=== PATIENT | female | born 2000 | race Caucasian/White ===

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

== ENCOUNTER 2018-01-16 19:08 | Emergency (ER) | payer OTHER ==
[~2018-01-16] VITALS: Ht 170.2 cm; Wt 72.6 kg
[2018-01-16 19:12] VITALS: TEMP 36.7; Ht 170.2 cm; Wt 72.6 kg
[2018-01-16] MEDS ORDERED: KETOROLAC TROMETHAMINE 30 MG/ML VIAL IV STA (19:25)
[2018-01-16] MEDS ORDERED: SODIUM CHLORIDE 0.9% 1000ML 1,000 ML IV STA ×2 (19:25)
[2018-01-16] MEDS ORDERED: ACETAMINOPHEN 500 MG TAB PO STA (19:25)
--- NOTE | 2018-01-16 19:25 | EMERGENCY ROOM VISIT NOTE ---
History Report prepared by Cami: Yung Kumar Under the Supervision of: Dr. Carlos Ambriz M.D. First contact with patient: 19:14 Chief Complaint: ABDOMINAL PAIN Stated Complaint: LOWER L AB PAIN INTENSE,NAUSEA,DIZZINESS,SHAKINESS History of Present Illness The patient is a 17 year old white female with a past medical history of stomach ulcers, ruptured ovarian cyst, and bulimia who presents to the ED with a cc of waxing and waning, left-sided abdominal pain beginning yesterday. Positive nausea, dizziness, shakiness, an episode of vomiting yesterday, brownish vaginal discharge, feeling warm, and being sexually active two weeks ago. Negative recent antibiotic use, recent travel, being around sick roommates , vaginal bleeding, relief with ibuprofen. She states nothing makes it better or worse. Pt had an IUD placed recently. Her LNMP was a few weeks ago. Pt takes Prozac daily for depression. Source of History: patient Onset: yesterday Position: abdomen (left sided) Timing: waxes/wanes Modifying Factors (Worsening): other (nothing) Modifying Factors (Relieving): other (nothing) Associated Symptoms: + nausea, + vomiting Note: Associated symptoms: dizziness, shakiness, brownish vaginal discharge, feeling warm Denies: vaginal bleeding Review of Systems See HPI for pertinent positives and negatives. A total of ten systems were reviewed and were otherwise negative. Past Medical & Surgical Medical Problems: (1) Depression (2) Eating disorder (3) Ovarian cyst rupture (4) Stomach problems (5) Ulcer Family History Cancer Social History Smoking Status: Never Smoker Smokeless Tobacco Use: No Alcohol Use: occasionally Marital Status: single Housing Status: lives with roommate Occupation Status: student Current/Historical Medications Scheduled Ferrous Sulfate (Iron), 1 TAB QAM Fluoxetine (Prozac), 40 MG PO QAM Iud's ([employer] Intrauterine Selling Manager), 1 DOSE IU DIRECTED Pantoprazole (Protonix), 40 MG PO QAM Tramadol Hcl (Ultram), 50 MG PO Q8H Allergies Coded Allergies: Dog Dander (Verified Allergy, Unknown, UNKNOWN, 01/16/18) Uncoded Allergies: FEATHERS (Allergy, Unknown, UNKNOWN, 12/25/16) Physical Exam Vital Signs Date Time Temp Pulse Resp B/P (MAP) Pulse Ox O2 Delivery O2 Flow Rate FiO2 01/16/18 23:43 78 121/73 98 01/16/18 23:38 81 19 98 01/16/18 23:08 80 29 99 01/16/18 22:55 71 18 113/81 98 Room Air 01/16/18 22:55 113/81 01/16/18 21:38 69 17 98 01/16/18 21:18 123/51 01/16/18 21:18 73 18 123/51 99 Room Air 01/16/18 20:18 71 01/16/18 20:08 73 17 98 01/16/18 19:12 36.7 91 18 129/68 100 Room Air Physical Exam GENERAL: Awake, alert, well-appearing, NAD HENT: Normocephalic, atraumatic. EYES: Normal conjunctiva. Sclera non-icteric. NECK: Supple. No nuchal rigidity. FROM. RESPIRATORY: CTAB, no rhonchi, wheezing, crackles CARDIAC: RRR, no MRG ABDOMEN: Soft, ND, BS+ LLQ suprapubic discomfort. Non-surgical abdomen. Negative obturator. Negative psoas. PELVIC (performed in the presence of a female nurse): Water and whitish discharge, non-purulent. IUD strings protruding from the cervical os which is closed. Left-sided adnexal TTP. No right adnexal or CMT TTP. MSK: No chest wall TTP, no LE edema NEURO: GCS 15, CN 2-12 intact, moves all 4s on command SKIN: No rash or jaundice noted. Medical Decision & Procedures ER Provider Diagnostic Interpretation: Radiology results as stated below per my review and radiologist interpretation: PELVIC COMPLETE NON OB, TRANSVAG-FEMALE PELVIS CLINICAL HISTORY: 17 years-old Female presenting with L sided ab pain, h/o ruptured ovarian cyst. TECHNIQUE: Real-time grayscale and color and spectral Doppler ultrasound imaging of the pelvis was performed first using a transabdominal probe and subsequently transvaginal for better characterization. COMPARISON: None. FINDINGS: Uterus: Intrauterine device is in place in the endometrial cavity. Anteverted. The uterus measures 7.2 x 2.7 x 3.8 cm. Endometrial stripe measures 4 mm in thickness. Endometrium normal-appearing. Cervix normal. Right adnexa: Right ovary contains multiple follicles. Right ovary measures 3.8 x 1.5 x 2.2 cm. Normal color Doppler flow and arterial and venous waveforms within the ovarian parenchyma. Left adnexa: Left ovary contains multiple follicles. Left ovary measures 2.9 x 1.9 x 2.4 cm. Normal color Doppler flow and arterial and venous waveforms within the ovarian parenchyma. Other: Trace free fluid, likely physiologic. IMPRESSION: 1. Intrauterine device within the uterus in expected position. 2. No ovarian torsion. Electronically signed by: Neto Yadav M.D. 01/16/2018 9:17 PM Dictated Date/Time: 01/16/2018 9:14 PM ABD/PELVIS IV CONTRAST ONLY CLINICAL HISTORY: 17 years-old Female presenting with L sided ab pain, h/o ovarian cyst, neg pelvic US. TECHNIQUE: Multidetector CT of the abdomen and pelvis was performed after the administration of intravenous contrast. IV contrast: 93 mL of Optiray 320. A dose lowering technique was used consistent with the principles of ALARA (as low as reasonably achievable). COMPARISON: None. CT DOSE (mGy.cm): The estimated cumulative dose is 335.69 mGy.cm. FINDINGS: Health And Safety Coordinator topogram: Unremarkable. Lung bases: Lungs and pleural spaces clear. Normal heart size. No pericardial or pleural effusion. Liver: Normal morphology. Heterogeneous enhancement of hepatic parenchyma. Periportal edema. No focal lesion. Patent hepatic vasculature. Biliary: No intrahepatic or extrahepatic biliary ductal dilatation. Normal gallbladder. Pancreas: Normal. Spleen: Normal. Adrenal glands: Normal. Kidneys and ureters: Normal. No hydronephrosis. Bladder: Normal. Pelvic organs: Uterus contains an intrauterine device, which appears appropriately positioned. Ovaries normal. Bowel: Moderate stool burden in the ascending colon and transverse colon. The terminal ileum is distended with feces. The appendix is normal. No bowel obstruction. The stomach is distended with ingested material. Peritoneal cavity: Trace free fluid in the pelvis. No free intraperitoneal gas. Lymph nodes: No enlarged lymph nodes in the abdomen or pelvis. Vasculature: Aorta and IVC patent and normal in caliber. Abdominal wall: Normal. Musculoskeletal: Normal. IMPRESSION: 1. Periportal edema and heterogeneity of hepatic enhancement pattern likely relates to aggressive volume resuscitation. 2. Moderate stool burden in the right colon with feces in the terminal ileum suggesting delayed transit. No bowel obstruction. 3. IUD in the uterus. Electronically signed by: Neto Yadav M.D. 01/16/2018 9:57 PM Dictated Date/Time: 01/16/2018 9:51 PM Laboratory Results 01/16/18 19:34 Red Blood Count 3.96, Mean Corpuscular Volume 80.6, Mean Corpuscular Hemoglobin 25.0, Mean Corpuscular Hemoglobin Concent 31.0, Mean Platelet Volume 9.6, Neutrophils (%) (Auto) 50.9, Lymphocytes (%) (Auto) 36.4, Monocytes (%) (Auto) 10.5, Eosinophils (%) (Auto) 1.5, Basophils (%) (Auto) 0.4, Neutrophils # (Auto ) 4.00, Lymphocytes # (Auto) 2.85, Monocytes # (Auto) 0.82, Eosinophils # (Auto ) 0.12, Basophils # (Auto) 0.03 01/16/18 19:34 Test 01/16/18 19:34 01/16/18 19:35 01/16/18 22:46 White Blood Count 7.84 K/uL (4.8-10.8) Red Blood Count 3.96 M/uL (4.2-5.4) Hemoglobin 9.9 g/dL (12.0-16.0) Hematocrit 31.9 % (37-47) Mean Corpuscular Volume 80.6 fL (80-100) Mean Corpuscular Hemoglobin 25.0 pg (25-34) Mean Corpuscular Hemoglobin Concent 31.0 g/dl (32-36) Platelet Count 313 K/uL (130-400) Mean Platelet Volume 9.6 fL (7.4-10.4) Neutrophils (%) (Auto) 50.9 % Lymphocytes (%) (Auto) 36.4 % Monocytes (%) (Auto) 10.5 % Eosinophils (%) (Auto) 1.5 % Basophils (%) (Auto) 0.4 % Neutrophils # (Auto) 4.00 K/uL (1.4-6.5) Lymphocytes # (Auto) 2.85 K/uL (1.2-3.4) Monocytes # (Auto) 0.82 K/uL (0.11-0.59) Eosinophils # (Auto) 0.12 K/uL (0-0.5) Basophils # (Auto) 0.03 K/uL (0-0.2) RDW Standard Deviation 49.0 fL (36.4-46.3) RDW Coefficient of Variation 16.7 % (11.5-14.5) Immature Granulocyte % (Auto) 0.3 % Immature Granulocyte # (Auto) 0.02 K/uL (0.00-0.02) Anion Gap 3.0 mmol/L (3-11) Est Creatinine Clear Calc Drug Dose 100.0 ml/min Estimated GFR () 110.4 Estimated GFR (Non- 95.3 BUN/Creatinine Ratio 25.7 (10-20) Calcium Level 8.4 mg/dl (8.5-10.1) Total Bilirubin 0.2 mg/dl (0.2-1) Direct Bilirubin < 0.1 mg/dl (0-0.2) Aspartate Amino Transf (AST/SGOT) 19 U/L (15-37) Alanine Aminotransferase (ALT/SGPT) 21 U/L (12-78) Alkaline Phosphatase 79 U/L (45-117) Total Protein 7.0 gm/dl (6.4-8.2) Albumin 3.8 gm/dl (3.4-5.0) Lipase 200 U/L (73-393) Urine Color YELLOW Urine Appearance CLEAR (CLEAR) Urine pH 6.5 (4.5-7.5) Urine Specific [place] 1.015 (1.000-1.030) Urine Protein NEG (NEG) Urine Glucose (UA) NEG (NEG) Urine Ketones NEG (NEG) Urine Occult Blood NEG (NEG) Urine Nitrite NEG (NEG) Urine Bilirubin NEG (NEG) Urine Urobilinogen NEG (NEG) Urine Leukocyte Esterase NEG (NEG) Urine Test NEG (NEG) Laboratory results reviewed by me Medications Administered Medications (Trade) Dose Ordered Sig/Adam Route Start Time Stop Time Status Last Admin Dose Admin Sodium Chloride 1,000 ml @ 999 mls/hr Q1H1M STAT IV 01/16/18 19:25 01/16/18 20:25 DC 01/16/18 19:42 999 MLS/HR Ketorolac Tromethamine (Toradol Inj) 30 mg NOW STAT IV 01/16/18 19:25 01/16/18 19:28 DC 01/16/18 19:43 30 MG Acetaminophen (Tylenol Tab) 1,000 mg NOW STAT PO 01/16/18 19:25 01/16/18 19:28 DC 01/16/18 19:43 1,000 MG Sodium Chloride 1,000 ml @ 999 mls/hr Q1H1M STAT IV 01/16/18 19:25 01/16/18 20:25 DC 01/16/18 19:25 999 MLS/HR Morphine Sulfate (MoRPHine SULFATE INJ) 4 mg NOW STAT IV 01/16/18 19:28 01/16/18 19:29 DC 01/16/18 19:44 4 MG Morphine Sulfate (MoRPHine SULFATE INJ) 4 mg NOW STAT IV 01/16/18 21:32 01/16/18 21:34 DC 01/16/18 21:38 4 MG Ondansetron HCl (Zofran Inj) 4 mg STK-MED ONCE .ROUTE 01/16/18 22:38 01/16/18 22:39 DC 01/16/18 22:38 4 MG Morphine Sulfate (MoRPHine SULFATE INJ) 4 mg NOW STAT IV 01/16/18 22:46 01/16/18 22:48 DC 01/16/18 22:56 4 MG Acetaminophen/ Hydrocodone Bitart ([place] 5/325mg Home Pack) 1 homepack UD ONCE PO 01/16/18 23:45 01/16/18 23:46 DC 01/16/18 23:56 1 HOMEPACK ED Course 1920: The patient was evaluated in room A10. A complete history and physical exam was performed. 2130: I reevaluated the patient and discussed her current US findings. 2238: I reevaluated the patient. I discussed the benefit of a pelvic exam. The patient consented, and I performed a pelvic exam in the presence of a female nurse. 2250: I discussed the patient's case with Dr. Campos, GEOLOGICAL SCOUT. She suggested cultures be obtained. She notes the patient's discomfort may have been from switching from OCP to IUD. She agrees with outpatient follow up. 2301: I reevaluated the patient. She is still experiencing mild discomfort. She will receive pain mediation and be discharged. Discussed results and discharge instructions: she verbalized understanding and agreement. The patient is ready for discharge once she receives her medication. Medical Decision Nursing notes reviewed. Ancillary studies and prior records reviewed. The patient is a 17 year old white female with a past medical history of stomach ulcers, ruptured ovarian cyst, and bulimia who presents to the ED with a cc of waxing and waning, left-sided abdominal pain beginning yesterday. Differential diagnosis: Etiologies such as appendicitis, diverticulitis, PUD, biliary pathology, UTI, pancreatitis, obstruction, mesenteric ischemia, aortic pathology, infections, inflammatory bowel disease, renal colic, as well as others were entertained. Patient was seen and evaluated the bedside. Patient was complaining of some left-sided abdominal pain. Patient does have a prior history of a ruptured ovarian cyst. Unsure as to whether not this was a hemorrhagic cyst. The patient does complain of some vaginal discharge. Patient's last sexual encounter was January 03. Patient states she is monogamous. Patient has had some nausea as well as some pain but no vomiting. Patient denies any trauma. Patient did have blood work completed along with a non-OB ultrasound of the pelvis. Patient was also given medications for symptom control. Patient's blood work did show a mild drop in her hemoglobin. Dropped 2 points from last year from 12 to the high nines. Patient's other blood work is fairly unremarkable. Patient's urinalysis is negative for blood or infection. Urine test negative. Patient was still having significant discomfort so she did have a CT of the abdomen pelvis. This is fairly unremarkable. Given the patient's persistent pain I did perform pelvic exam. Patient IUD appeared to be in place and she did have some watery discharge. She did have some cultures that were sent off for further testing but the fluid did not appear purulent and the patient had no CMT. Patient's right adnexa was normal and the patient's left adnexa did have some discomfort. I did discuss the patient's case with the on-call quarryman who did state that she may be having some ovulatory pain given that she recently switched from OCPs to an IUD. She recommended follow-up and return if she had any worsening symptoms. I explained all this to the patient. Patient was feeling mildly improved. Patient was given pain medication for home. She was deemed suitable for outpatient follow-up and treatment at this time. Patient was given strict follow-up, discharge, and return precautions. All questions were answered. Patient was deemed suitable for outpatient follow- up at this time. Patient agreed with the plan of care and was safely discharged home. [place] Drug Monitoring Program Search Results: patient reviewed within database, no issues identified Medication Reconcilliation Current Medication List: was personally reviewed by me Blood Pressure Screening Patient's blood pressure: Normal blood pressure Blood pressure disposition: Did not require urgent referral Consults Time Called: 2246 Consulting Physician: Dr. Campos, GEOLOGICAL SCOUT Returned Call: [phone] I discussed the patient's case with Dr. Campos, GEOLOGICAL SCOUT. She suggested cultures be obtained. She notes the patient's discomfort may have been from switching from OCP to IUD. She agrees with outpatient follow up. Impression Primary Impression: Ovulatory pain Additional Impressions: Abdominal pain Nausea Anemia Scribe Attestation The scribe's documentation has been prepared under my direction and personally reviewed by me in its entirety. I confirm that the note above accurately reflects all work, treatment, procedures, and medical decision making performed by me. Departure Information Dispostion Home / Self-Care Prescriptions Tramadol Hcl (ULTRAM) 50 Mg Tab 50 MG PO Q8H, #12 TAB PRN PAIN Prov: Carlos Ambriz M.D. 01/16/18 Referrals [facility] (PCP) Forms HOME CARE DOCUMENTATION FORM, IMPORTANT VISIT INFORMATION Patient Instructions Abdominal Pain, My [facility] Additional Instructions Please return to the emergency department if you have worsening or recurrent symptoms not amenable to at-home treatment. Please call for a follow-up appointment with her primary care physician. Please take your medications as prescribed. If you have other concerns and/or complaints please feel free to also call your primary care physician's office or return the ED for further evaluation, management, and treatment. You received narcotic or benzodiazepene medication while in the emergency room today. This is an addictive medication that may cause drowziness as well as constipation. Do not drive, operate heavy machinery, or drink alcohol under the influence of this medication. You may take 800 mg Ibuprofen every 6 hours as needed for pain/fever with food. You may take tylenol 1000 mg every 6 hours as needed for pain. You may take motrin and tylenol separately or at the same time. If he still had persistent discomfort you may take the tramadol. Please continue to hydrate well with clear liquids. Avoid alcohol. Follow-up with [facility] or return for further evaluation and treatment. Take your medications as prescribed. You have been examined and treated today on an emergency basis only. This is not a substitute for, or an effort to provide, complete comprehensive medical care. It is impossible to recognize and treat all injuries or illnesses in a single emergency department visit. It is therefore important that you follow up closely with [facility], your PCP, and/or your specialist(s). Call as soon as possible for an appointment. Thank you for your time and consideration. I look forward to speaking with you again soon. Please don't hesitate to call us if you have any questions. Problem Qualifiers Additional Impressions: Abdominal pain Abdominal location: generalized Qualified Codes: R10.84 - Generalized abdominal pain Anemia Anemia type: unspecified type Qualified Codes: D64.9 - Anemia, unspecified
[2018-01-16] MEDS ORDERED: MoRPHine SULFATE 4 MG/ML 1 ML CARP\\VIAL IV STA ×3 (19:28→22:46)
[2018-01-16 19:57] LABS: BASO % 0.4 %; BASO ABS # 0.03 K/uL (0-0.2); EOS % 1.5 %; EOS ABS # 0.12 K/uL (0-0.5); HEMATOCRIT 31.9 % (37-47); HEMOGLOBIN 9.9 g/dL (12.0-16.0); IG# 0.02 K/uL (0.00-0.02); LYMPH % 36.4 %; LYMPH ABS # 2.85 K/uL (1.2-3.4); MEAN CELL VOLUME 80.6 fL (80-100); MEAN PLATELET VOLUME 9.6 fL (7.4-10.4); MONO % 10.5 %; MONO ABS # 0.82 K/uL (0.11-0.59); NEUT % 50.9 %; PLATELET COUNT 313 K/uL (130-400); RED CELL DISTRIBUTION WIDTH CV 16.7 % (11.5-14.5); WHITE BLOOD COUNT 7.84 K/uL (4.8-10.8)
[2018-01-16 20:14] LABS: ALBUMIN 3.8 gm/dl (3.4-5.0); ALT/SGPT 21 U/L (12-78); AST/SGOT 19 U/L (15-37); BLOOD UREA NITROGEN 23 mg/dl (7-18); CALCIUM 8.4 mg/dl (8.5-10.1); CARBON DIOXIDE 31 mmol/L (21-32); CREATININE 0.88 mg/dl (0.60-1.20); GLUCOSE 88 mg/dl (70-99); LIPASE 200 U/L (73-393); POTASSIUM 3.8 mmol/L (3.5-5.1); SODIUM 140 mmol/L (136-145)
[2018-01-16 20:17] LABS: ALKALINE PHOSPHATASE 79 U/L (45-117)
[2018-01-16] MEDS ORDERED: PANT40TA PO (20:22)
[2018-01-16] MEDS ORDERED: FERR1TAB23 (20:22)
[2018-01-16] MEDS ORDERED: FLUO40CA8 PO (20:22)
[2018-01-16] MEDS ORDERED: IUD'IUD IU (20:22)
--- NOTE | 2018-01-16 21:18 | DIAGNOSTIC IMAGING REPORT ---
PELVIC COMPLETE NON OB, TRANSVAG-FEMALE PELVIS CLINICAL HISTORY: 17 years-old Female presenting with L sided ab pain, h/o ruptured ovarian cyst. TECHNIQUE: Real-time grayscale and color and spectral Doppler ultrasound imaging of the pelvis was performed first using a transabdominal probe and subsequently transvaginal for better characterization. COMPARISON: None. FINDINGS: Uterus: Intrauterine device is in place in the endometrial cavity. Anteverted. The uterus measures 7.2 x 2.7 x 3.8 cm. Endometrial stripe measures 4 mm in thickness. Endometrium normal-appearing. Cervix normal. Right adnexa: Right ovary contains multiple follicles. Right ovary measures 3.8 x 1.5 x 2.2 cm. Normal color Doppler flow and arterial and venous waveforms within the ovarian parenchyma. Left adnexa: Left ovary contains multiple follicles. Left ovary measures 2.9 x 1.9 x 2.4 cm. Normal color Doppler flow and arterial and venous waveforms within the ovarian parenchyma. Other: Trace free fluid, likely physiologic. IMPRESSION: 1. Intrauterine device within the uterus in expected position. 2. No ovarian torsion. Electronically signed by: Neto Yadav M.D. 01/16/2018 9:17 PM Dictated Date/Time: 01/16/2018 9:14 PM
[2018-01-16] MEDS ORDERED: OPTIRAY 320 IV PRN (21:45)
--- NOTE | 2018-01-16 21:58 | DIAGNOSTIC IMAGING REPORT ---
ABD/PELVIS IV CONTRAST ONLY CLINICAL HISTORY: 17 years-old Female presenting with L sided ab pain, h/o ovarian cyst, neg pelvic US. TECHNIQUE: Multidetector CT of the abdomen and pelvis was performed after the administration of intravenous contrast. IV contrast: 93 mL of Optiray 320. A dose lowering technique was used consistent with the principles of ALARA (as low as reasonably achievable). COMPARISON: None. CT DOSE (mGy.cm): The estimated cumulative dose is 335.69 mGy.cm. FINDINGS: Mobile Battery Technician topogram: Unremarkable. Lung bases: Lungs and pleural spaces clear. Normal heart size. No pericardial or pleural effusion. Liver: Normal morphology. Heterogeneous enhancement of hepatic parenchyma. Periportal edema. No focal lesion. Patent hepatic vasculature. Biliary: No intrahepatic or extrahepatic biliary ductal dilatation. Normal gallbladder. Pancreas: Normal. Spleen: Normal. Adrenal glands: Normal. Kidneys and ureters: Normal. No hydronephrosis. Bladder: Normal. Pelvic organs: Uterus contains an intrauterine device, which appears appropriately positioned. Ovaries normal. Bowel: Moderate stool burden in the ascending colon and transverse colon. The terminal ileum is distended with feces. The appendix is normal. No bowel obstruction. The stomach is distended with ingested material. Peritoneal cavity: Trace free fluid in the pelvis. No free intraperitoneal gas. Lymph nodes: No enlarged lymph nodes in the abdomen or pelvis. Vasculature: Aorta and IVC patent and normal in caliber. Abdominal wall: Normal. Musculoskeletal: Normal. IMPRESSION: 1. Periportal edema and heterogeneity of hepatic enhancement pattern likely relates to aggressive volume resuscitation. 2. Moderate stool burden in the right colon with feces in the terminal ileum suggesting delayed transit. No bowel obstruction. 3. IUD in the uterus. Electronically signed by: Neto Yadav M.D. 01/16/2018 9:57 PM Dictated Date/Time: 01/16/2018 9:51 PM
[2018-01-16] MEDS ORDERED: ONDANSETRON INJ 2 MG/ML 2 ML VIAL ONE (22:38)
[2018-01-16] MEDS ORDERED: ONDANSETRON INJ 2 MG/ML 2 ML VIAL IV STA (22:46)
[2018-01-16] MEDS ORDERED: TRAM-453 PO (23:31)
[2018-01-16 23:43] VITALS: BP 121/73; PULSE 78; O2SAT 98
[2018-01-16] MEDS ORDERED: NORCO 5/325MG HOME PACK PO ONE (23:45)
== END 2018-01-17 00:03 | disposition home or self-care (01) ==
LOC: C.EDB 19:10 → C.EDA 01-17 00:03
DX: R10.2 Pelvic and perineal pain (principal); N89.8 Other specified noninflammatory disorders of vagina; R11.0 Nausea; D64.9 Anemia, unspecified; Z97.5 Presence of (intrauterine) contraceptive device; Z87.42 Personal history of other diseases of the female genital tract; F32.9 Major depressive disorder, single episode, unspecified; Z91.048 Other nonmedicinal substance allergy status